=== PATIENT | female | born 1975 | race American Indian/Alaskan Native ===

== ENCOUNTER 2022-02-23 20:59 | Emergency (ER) | payer MEDICARE ==
[2022-02-23 21:26] VITALS: BP 170/99
[2022-02-23 22:23] LABS: Alanine Aminotransferase 22 units/L (7-56); Albumin 4.1 g/dL (3.9-5); BUN/Creatinine Ratio 9; Blood Urea Nitrogen 10 mg/dL (7-17); Hemolysis Index 18
[2022-02-23 22:24] LABS: Basophils % (Auto) 2.2 % (0.0-1.8); Hematocrit 41.4 % (30.3-42.9); Hemoglobin 14.3 gm/dl (10.1-14.3); Mean Corpuscular HGB Conc 35 % (30-34); Mean Corpuscular Volume 90 fl (79-97); Platelet Count 326 K/mm3 (140-440); Red Blood Count 4.58 M/mm3 (3.65-5.03); Red Cell Distribution Width 14.5 % (13.2-15.2)
[2022-02-23 22:25] LABS: Lymphocytes % (Auto) 33.6 % (13.4-35.0); Monocytes % (Auto) 6.8 % (0.0-7.3)
[2022-02-23 22:26] LABS: Basophils # (Auto) 0.2 K/mm3 (0.0-0.1); Eosinophils # (Auto) 0.2 K/mm3 (0.0-0.4); Lymphocytes # (Auto) 2.4 K/mm3 (1.2-5.4); Monocytes # (Auto) 0.5 K/mm3 (0.0-0.8)
--- NOTE | 2022-02-24 09:42 | Electrocardiograph Report ---
[facility] Test Date: 2022-02-23 Test Time: 21:32:29 Pat Name: DENISE AMOR Department: Room: Gender: F [employer]: : 1975 Requested By: JAY MCGUIRE Order Number: [id number] Reading MD: Ajay Florez Measurements Intervals [place] Rate: 70 P: 75 AK: 163 QRS: 47 QRSD: 82 T: 51 QT: 434 QTc: 469 Interpretive Statements Sinus rhythm No previous ECG available for comparison Electronically Signed On 02-24-2022 9:41:41 EDT by Ajay Florez
== END 2022-02-24 09:21 | disposition left against medical advice (07) ==
LOC: ED 20:59
DX: M54.50 Low back pain, unspecified (principal); R42 Dizziness and giddiness; M79.89 Other specified soft tissue disorders; Z53.21 Procedure and treatment not carried out due to patient leaving prior to being seen by health care provider
CPT/HCPCS: 36415; 80053; 84484; 85025; 93005